=== PATIENT | male | born 1975 | race Caucasian/White ===

== ENCOUNTER 2023-09-01 10:16 | Day surgery (SDC) | payer OTHER ==
[~2023-09-01] VITALS: Ht 182.9 cm; Wt 117.9 kg
[2023-09-01] MEDS ORDERED: LIDOCAINE 2% 100 MG/5 ML UJET TP ONE (11:09)
[2023-09-01] MEDS ORDERED: fentaNYL citrate 0.05 MG/ML VIAL ONE (11:09)
[2023-09-01] MEDS: fentaNYL citrate 0.05 MG/ML VIAL IVP ONE (11:21)
[2023-09-01] MEDS: LIDOCAINE 2% 100 MG/5 ML UJET TP ONE (11:24)
== END 2023-09-01 12:06 | disposition home or self-care (01) ==
LOC: MDS 10:16 → MMU 10:17 → MDS 12:06
PROVIDERS: ATTEND Internal Medicine Gastroenterology
DX: Z12.11 Encounter for screening for malignant neoplasm of colon (principal); K63.5 Polyp of colon; Z79.899 Other long term (current) drug therapy; Z98.890 Other specified postprocedural states
CPT/HCPCS: 45385; J3010